=== PATIENT | female | born 1980 | race Two or more races ===

== ENCOUNTER 2018-05-23 05:01 | Emergency (ER) | payer OTHER ==
[~2018-05-23] VITALS: Ht 154.9 cm; Wt 61.2 kg
[~2018-05-23 05:01] MED LIST: KETO10TA2 PO; MIGRALAM CAPSUL1 CAP PO
[2018-05-23] MEDS ORDERED: BUPROPION HCL75 MG (05:17)
[2018-05-23] MEDS ORDERED: CLONAZEPAM1 MG (05:17)
== END 2018-05-23 08:59 | disposition home or self-care (01) ==
LOC: ER 05:01
DX: G43.809 Other migraine, not intractable, without status migrainosus (principal); M62.838 Other muscle spasm

== ENCOUNTER 2018-07-15 08:11 | Outpatient (CLI) | payer OTHER ==
[~2018-07-15 08:11] MED LIST changes: +BUPROPION HCL75 MG; +CLONAZEPAM1 MG
== END 2018-07-15 08:14 | disposition home or self-care (01) ==
LOC: MAMO-SONO 08:11
DX: N84.0 Polyp of corpus uteri (principal); N91.1 Secondary amenorrhea; N60.11 Diffuse cystic mastopathy of right breast; Z12.31 Encounter for screening mammogram for malignant neoplasm of breast

== ENCOUNTER 2018-10-04 07:39 | Outpatient (CLI) | payer OTHER | END 2018-10-04 07:47 | disposition home or self-care (01) | LOC: RAD 07:39 | DX: M06.4 Inflammatory polyarthropathy (principal); R06.02 Shortness of breath; R06.00 Dyspnea, unspecified ==

== ENCOUNTER 2018-12-29 08:01 | Emergency (ER) | payer OTHER ==
[~2018-12-29] VITALS: Ht 152.4 cm; Wt 63.5 kg
== END 2018-12-29 10:37 | disposition home or self-care (01) ==
LOC: ER 08:01
DX: M46.1 Sacroiliitis, not elsewhere classified (principal)

== ENCOUNTER 2020-01-11 11:55 | Outpatient (CLI) | payer OTHER | END 2020-01-11 12:03 | disposition home or self-care (01) | LOC: RAD 11:55 | PROVIDERS: ATTEND General Practice | DX: M53.3 Sacrococcygeal disorders, not elsewhere classified (principal) ==

== ENCOUNTER → 2020-05-24 | Outpatient (CLI) | payer OTHER | END | disposition home or self-care (01) | LOC: MAMO-SONO 12:44 | PROVIDERS: ATTEND Obstetrics & Gynecology | DX: N60.11 Diffuse cystic mastopathy of right breast (principal); Z12.31 Encounter for screening mammogram for malignant neoplasm of breast ==

== ENCOUNTER 2024-05-03 02:28 | Emergency (ER) | payer OTHER ==
[~2024-05-03] VITALS: Ht 152.4 cm; Wt 65.8 kg
[2024-05-03 03:30] VITALS: BP 123/83; O2SAT 98
[2024-05-03] MEDS ORDERED: METHYLPREDNISOLONE SOD SUCC 125 MG VIAL IV STA (04:14)
[2024-05-03] MEDS ORDERED: DIPHENHYDRAMINE HCL 50 MG/ML VIAL 1ML IV STA (04:14)
[2024-05-03] MEDS ORDERED: FAMOTIDINE/PF 20 MG/2 ML VIAL IV PUSH STA (04:15)
[2024-05-03] MEDS ORDERED: EPINEPHRINE HCL/PF 1 MG/ML AMPUL SUBCUTANEO STA (04:16)
[2024-05-03] MEDS ORDERED: PEPCID40 MG PO (05:22)
[2024-05-03] MEDS ORDERED: MEDROL8 MG PO (05:22)
[2024-05-03] MEDS ORDERED: BENADRYL25 MG PO (05:22)
== END 2024-05-03 05:30 ==
LOC: ER 02:30
DX: T78.40XA Allergy, unspecified, initial encounter (principal)
CPT/HCPCS: 96365; 99282; J1200; J3490

== ENCOUNTER 2025-05-15 09:45 | Outpatient (CLI) | payer OTHER ==
[~2025-05-15 09:45] MED LIST changes: +BENADRYL25 MG PO; +MEDROL8 MG PO; +PEPCID40 MG PO
== END 2025-05-15 09:50 | disposition home or self-care (01) ==
LOC: MAMO-SONO 09:45
PROVIDERS: ATTEND Obstetrics & Gynecology
DX: N64.4 Mastodynia (principal); N60.11 Diffuse cystic mastopathy of right breast; N60.12 Diffuse cystic mastopathy of left breast; Z12.31 Encounter for screening mammogram for malignant neoplasm of breast